=== PATIENT | male | born 1985 | race Caucasian/White ===

== ENCOUNTER 2022-02-03 00:28 | Emergency (ER) | payer BC ==
[~2022-02-03] VITALS: Ht 177.8 cm; Wt 96.2 kg
--- NOTE | 2022-02-03 00:44 | NUR ---
[id number] FROM HOME C/O FEELING ANXIOUS. PATIENT ALERT AND ORIENTED X4. AMBULATORY WITH NON LABORED BREATHING IN BED 04 ON MONITOR AND POX, AWAITING MD JOVEL.
--- NOTE | 2022-02-03 00:55 | NUR ---
PATIENT STATED HE WAS FEELING BETTER. DOES NOT WANT TO BE SEEN BY ER MD. VSS, NO ACUTE DISTRESS NOTED.
--- NOTE | 2022-02-03 00:56 | NUR ---
Patient left without being seen by ER Physician
[2022-02-03 00:57] VITALS: BP 128/70
== END 2022-02-03 00:58 | disposition left against medical advice (07) ==
LOC: ER 00:31
DX: Z53.21 Procedure and treatment not carried out due to patient leaving prior to being seen by health care provider (principal); F41.9 Anxiety disorder, unspecified